=== PATIENT | male | born 1980 | race Two or more races ===

== ENCOUNTER 2017-03-29 18:44 | Emergency (ER) | payer SELFPAY ==
[~2017-03-29] VITALS: Ht 172.7 cm; Wt 72.6 kg
[2017-03-29] MEDS ORDERED: Morphine Sulfate 4mg/ml Inj IM ONE (19:30)
[2017-03-29 19:37] VITALS: BP 133/93
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
[2017-03-29 21:21] LABS: MEAN CORPUSCULAR HEMOGLOBIN 28.9 PG (27.0-31.0); MEAN CORPUSCULAR HGB CONC 31.4 G/DL (32.0-36.0); MEAN CORPUSCULAR VOLUME 92 FL (80-99); MEAN PLATELET VOLUME 7.7 FL (6.5-10.1); PLATELET COUNT 234 K/UL (150-450); RED BLOOD COUNT 5.91 M/UL (4.70-6.10); RED CELL DISTRIBUTION WIDTH 11.7 % (11.6-14.8); WHITE BLOOD COUNT 16.2 K/UL (4.8-10.8)
[2017-03-29 21:35] LABS: PROTHROMBIN TIME 10.1 SEC (9.30-11.50)
[2017-03-29 21:50] LABS: ALANINE AMINOTRANSFERASE 43 U/L (12-78); ALBUMIN/GLOBULIN RATIO 1.3 (1.0-2.7); ANION GAP 9 mmol/L (5-15); ASPARTATE AMINO TRANSFERASE 21 U/L (15-37); CARBON DIOXIDE 29 MMOL/L (21-32); CHLORIDE 104 MMOL/L (98-107); CKMB 2.1 NG/ML (0.0-3.6); GLOMERULAR FILTRATION RATE > 60 mL/min (>60); POTASSIUM 4.5 MMOL/L (3.5-5.1); SODIUM 142 MMOL/L (136-145); TOTAL PROTEIN 9.3 G/DL (6.4-8.2)
[2017-03-29 21:57] LABS: BAND NEUTROPHILS % (MANUAL) 3 % (0-8); BASOPHILS % (MANUAL) 0 % (0-2); EOSINOPHILS % (MANUAL) 0 % (0-3); LYMPHOCYTES % (MANUAL) 15 % (20-45); NEUTROPHILS % (MANUAL) 79 % (45-75); PLATELET ESTIMATE ADEQUATE; PLATELET MORPHOLOGY NORMAL; TOTAL CELLS COUNTED 100
[2017-03-29 23:40] VITALS: BP 126/81
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
== END 2017-03-29 23:43 | disposition short-term general hospital (02) ==
LOC: EDBD 18:44 → EMR 19:50
DX: S02.651A Fracture of angle of right mandible, initial encounter for closed fracture (principal); K03.1 Abrasion of teeth; Y04.2XXA Assault by strike against or bumped into by another person, initial encounter; Y93.55 Activity, bike riding; Y92.410 Unspecified street and highway as the place of occurrence of the external cause
CPT/HCPCS: 36415; 70486; 80053; 82550; 82553; 85007; 85025; 85610; 85730; 86850; 86900; 86901; 96372; 99285; J2270